=== PATIENT | male | born 1995 | race African-American/Black ===

== ENCOUNTER 2017-05-16 18:09 | Emergency (ER) | payer OTHER | END 2017-05-16 19:38 | disposition home or self-care (01) | LOC: ER 18:09 | DX: S56.911A Strain of unspecified muscles, fascia and tendons at forearm level, right arm, initial encounter (principal); S66.911A Strain of unspecified muscle, fascia and tendon at wrist and hand level, right hand, initial encounter; I10 Essential (primary) hypertension; E66.9 Obesity, unspecified; G43.909 Migraine, unspecified, not intractable, without status migrainosus; X58.XXXA Exposure to other specified factors, initial encounter; Y93.89 Activity, other specified; Y92.89 Other specified places as the place of occurrence of the external cause; Y99.8 Other external cause status | CPT/HCPCS: 29105; 73080; 73130; 99284-25 ==